=== PATIENT | female | born 1985 | race Caucasian/White ===

== ENCOUNTER 2023-05-20 10:50 | Emergency (ER) | payer MEDICAID ==
[~2023-05-20] VITALS: Ht 167.6 cm; Wt 69.0 kg
[2023-05-20 10:58] VITALS: O2SAT 99
[2023-05-20 12:14] VITALS: BP 133/83; PULSE 121; RESP 21; TEMP 98.8
[2023-05-20 12:15] LABS: BASOPHILS % 0.4 % (0.0-2.0); EOSINOPHILS % 1.5 % (0.0-5.0); HEMATOCRIT. 37.8 % (36.0-48.0); HEMOGLOBIN. 12.8 g/dL (12.0-16.0); LYMPHOCYTES % 20.2 % (20.0-50.0); MEAN CORPUSCULAR HEMOGLOBIN 30.2 pg (28.0-32.0); MONOCYTES % 7.6 % (2.0-8.0); NEUTROPHILS % 70.3 % (40.0-76.0); PLATELET 303 x1000/uL (130-400); RED BLOOD CELL COUNT 4.25 mill/uL (4.2-5.4); RED CELL DISTRIBUTION WIDTH 13.2 % (11.6-14.6); WHITE BLOOD COUNT 10.3 x1000/uL (4.5-11.0)
[2023-05-20 12:35] LABS: CHLORIDE 105 mEq/L (98-107); INDEX HEMOLYSI 1 (1-3); INDEX ICTERIC 1 (1-4); INDEX LIPEMIC 1 (1-3); POTASSIUM 3.2 mEq/L (3.5-5.1); SODIUM 140 mEq/L (136-145)
[2023-05-20 12:39] LABS: HCG SCREEN NEGATIVE
[2023-05-20 12:53] LABS: ALANINE AMINOTRANSFERASE 22 IU/L (13-61); ALBUMIN 3.6 g/dL (3.4-5.0); ASPARTATE AMINOTRANSFERASE 18 IU/L (15-37); BILIRUBIN TOTAL 0.2 mg/dL (0.1-1.0); CALCIUM 9.1 mg/dL (8.5-10.1); CARBON DIOXIDE 30 mEq/L (21-32); CREATININE 0.7 mg/dL (0.6-1.3); ETHANOL BLOOD < 10 mg/dL (<10); GLUCOSE 98 mg/dL (70-105); PROTEIN TOTAL 7.3 g/dL (6.0-8.3); UREA NITROGEN BLOOD 11 mg/dL (7-21)
[2023-05-20] MEDS ORDERED: MIDAZOLAM HCL 2 MG/2 ML VIAL IM ONE (14:30)
== END 2023-05-20 14:52 | disposition left against medical advice (07) ==
LOC: ER 11:03
DX: F23 Brief psychotic disorder (principal)
CPT/HCPCS: 80053; 80320; 82962; 84703; 85025; 36415; 99283; J2250; Z7610; G0480